=== PATIENT | male | born 1970 | race Caucasian/White ===

== ENCOUNTER → 2017-03-08 | Outpatient (CLI) | payer BC ==
[~2017-03-08] MED LIST: AMOXICILLIN500 MG PO; MEDROL DOSEPAK4 MG PO; ULTRAM50 MG PO; VICODIN 5/500 505 MG PO
== END | disposition home or self-care (01) ==
LOC: US 13:37
DX: N43.3 Hydrocele, unspecified (principal); I86.1 Scrotal varices; N50.89 Other specified disorders of the male genital organs

== ENCOUNTER → 2022-04-24 | Day surgery (SDC) | payer OTHER ==
[~2022-04-24] VITALS: Ht 172.7 cm; Wt 97.5 kg
[~2022-04-24] MED LIST changes: +WELLBUTRIN SR150 MG PO; +ZYLOPRIM100 MG PO
[2022-04-24 10:39] VITALS: BP 120/79
[2022-04-24 11:10] VITALS: BP 108/71
[2022-04-24 11:25] VITALS: BP 112/76
[2022-04-24 11:36] VITALS: BP 123/73
== END | disposition home or self-care (01) ==
LOC: SDC 04-20 11:00
PROVIDERS: ATTEND Surgery
DX: Z12.11 Encounter for screening for malignant neoplasm of colon (principal); K57.30 Diverticulosis of large intestine without perforation or abscess without bleeding; F41.9 Anxiety disorder, unspecified; F32.A Depression, unspecified; M10.9 Gout, unspecified; Z79.899 Other long term (current) drug therapy

== ENCOUNTER → 2024-12-23 | Outpatient (CLI) | payer OTHER | END | disposition home or self-care (01) | LOC: LAB 11:10 → RAD 11:10 | PROVIDERS: ATTEND Nurse Practitioner Primary Care | DX: R10.9 Unspecified abdominal pain (principal) ==